=== PATIENT | male | born 1965 | race African-American/Black ===

== ENCOUNTER 2022-07-24 13:16 | Emergency (ER) | payer MEDICAID ==
[~2022-07-24] VITALS: Ht 177.8 cm; Wt 86.0 kg
[2022-07-24] MEDS ORDERED: HYDROCODONE/ACETAMINOPHEN 5/325MG TABLET PO ONE (14:45)
[2022-07-24] MEDS ORDERED: TRAM50TA3 MT ×2 (15:05→15:38)
[2022-07-24] MEDS ORDERED: IBUP-2030 MT (15:05)
[2022-07-24 15:55] VITALS: BP 162/88
== END 2022-07-24 15:57 | disposition home or self-care (01) ==
LOC: ER 13:16
DX: M25.512 Pain in left shoulder (principal); I10 Essential (primary) hypertension
CPT/HCPCS: 29125; 73030; 99283; A4565